=== PATIENT | male | born 1985 | race American Indian/Alaskan Native ===

== ENCOUNTER 2017-05-01 15:53 | Emergency (ER) | payer OTHER ==
[2017-05-01 16:45] VITALS: BP 129/79
[2017-05-01] MEDS ORDERED: ULTRAM PO ONE (20:37)
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
--- NOTE | 2017-05-02 07:21 | XRay Report ---
LEFT FOREARM: History: Left arm pain. AP and lateral views of the forearm demonstrate normal mineralization and contours for this patient's age. No destructive changes are noted and the adjacent soft tissues are normal. IMPRESSION: Normal left forearm.
--- NOTE | 2017-05-02 07:22 | XRay Report ---
LEFT HUMERUS: History: Left arm pain. AP and lateral views of the humerus demonstrate normal mineralization and contours for this patient's age. No destructive changes are noted and the adjacent soft tissues are normal. IMPRESSION: Normal left humerus.
== END 2017-05-01 21:53 | disposition home or self-care (01) ==
LOC: ED 15:53
DX: S50.812A Abrasion of left forearm, initial encounter (principal); S40.022A Contusion of left upper arm, initial encounter; W18.30XA Fall on same level, unspecified, initial encounter; Y93.9 Activity, unspecified; Y92.89 Other specified places as the place of occurrence of the external cause; Y99.9 Unspecified external cause status
CPT/HCPCS: 99283